=== PATIENT | female | born 2000 | race Caucasian/White ===

== ENCOUNTER 2020-03-15 21:02 | Emergency (ER) | payer OTHER ==
[~2020-03-15] VITALS: Ht 154.9 cm; Wt 55.8 kg
[2020-03-15 21:13] VITALS: Ht 154.9 cm; Wt 55.8 kg
[2020-03-15 22:39] VITALS: BP 100/57
== END 2020-03-15 22:39 | disposition home or self-care (01) ==
LOC: ED 21:02
DX: O26.892 Other specified pregnancy related conditions, second trimester (principal); R10.33 Periumbilical pain; Z3A.25 25 weeks gestation of pregnancy